=== PATIENT | male | born 1935 | race Caucasian/White ===

== ENCOUNTER 2024-10-17 10:38 | Inpatient (IN) | payer SELFPAY ==
[2024-10-17] VITALS (7 sets, daily range): BP systolic 109–125; BP diastolic 59–67; PULSE 74–79; RESP 18–20; TEMP 97.9–98.4; O2SAT 93–98
[~2024-10-17] VITALS: Ht 188 cm; Wt 83.0 kg
[~2024-10-17 10:38] MED LIST: ALLO-97 PO; APIX5TAB PO; ATOR10TA PO; ATOR10TA69 PO; CARV3 PO; DOCU-385 PO; FINA-27 PO; FLUT1BLS3 IDUCT; FURO20TA5 PO; LEVE250T PO; LEVE250T81 PO; LEVO-72 PO; LEVO500 PO; LISI-894 PO; MULT-1239 PO; PANT-31 PO; POLY17PO47 PEG; SENN-376 PO; TAMS0.4C94 PO; THIA100T80 PO; UBID100C63 PO
[2024-10-17] MEDS ORDERED: ACETAMINOPHEN 325 MG TABLET PO PRN (15:30)
[2024-10-17] MEDS ORDERED: ALBUTEROL SULFATE HFA 90 MCG/PUFF 8 GM INHALER IH PRN (15:30)
[2024-10-17] MEDS: CARVEDILOL 3.125 MG TABLET PO SCH (17:08)
[2024-10-17] MEDS: APIXABAN 2.5 MG TABLET PO SCH (19:53)
[2024-10-17] MEDS: ETHYL ALCOHOL 62% ANTISEPTIC NASAL SANITIZER 0.6 ML AMPUL NASAL SCH (19:53)
[2024-10-17] MEDS: LACTULOSE 20 GM/30 ML SOLUTION UDCUP PO SCH (19:53)
[2024-10-17] MEDS: RIFAXIMIN 550 MG TABLET PO SCH (19:53)
[2024-10-18] VITALS (11 sets, daily range): BP systolic 112–117; BP diastolic 60–69; PULSE 70–81; RESP 18–26; TEMP 97.6–98.3; O2SAT 94–99
[2024-10-18] MEDS: PANTOPRAZOLE SODIUM 40 MG DR TABLET PO SCH (06:41)
[2024-10-18 08:42] LABS: BASOPHILS % (AUTO) 0.2 % (0.0-2.0); EOSINOPHILS % (AUTO) 1.2 % (1.0-6.0); HEMATOCRIT 35.1 % (41-53); HEMOGLOBIN 11.1 g/dL (13.5-17.5); LYMPHOCYTES # (AUTO) 0.7 K/uL (1.0-4.8); LYMPHOCYTES % (AUTO) 10.9 % (22.0-44.0); MEAN CORPUSCULAR HEMOGLOBIN 25.9 pg (26.0-34.0); MEAN CORPUSCULAR HGB CONC 31.6 G/dL (31.0-37.0); MEAN CORPUSCULAR VOLUME 82 fL (80-100); MONOCYTES # (AUTO) 0.6 K/uL (0.1-1.0); MONOCYTES % (AUTO) 8.6 % (2.0-9.0); NEUTROPHILS # (AUTO) 5.1 K/uL (1.8-7.7); NEUTROPHILS % (AUTO) 79.1 % (40.0-70.0); PLATELET COUNT (AUTO) 122 K/uL (150-450); RED BLOOD CELL COUNT(AUTO) 4.29 MIL/uL (4.50-5.90); RED CELL DISTRIBUTION WIDTH 21.3 % (11.5-14.5); WHITE BLOOD COUNT (AUTO) 6.5 K/uL (4.5-11.0)
[2024-10-18 09:00] LABS: ALBUMIN 2.6 g/dL (3.4-5.0); BILIRUBIN,TOTAL 0.7 mg/dL (0.1-1.0); CALCIUM, TOTAL 7.5 mg/dL (8.8-10.5); CREATININE 1.31 mg/dL (0.60-1.30); POTASSIUM 3.4 mmol/L (3.5-5.1); TOTAL PROTEIN, SERUM 5.9 g/dL (6.4-8.2)
[2024-10-18] MEDS: FERROUS SULFATE 325 MG EC TABLET PO SCH (09:13)
[2024-10-18] MEDS: SPIRONOLACTONE 25 MG TABLET PO SCH (09:14)
[2024-10-18] MEDS: DUTASTERIDE 0.5 MG CAPSULE PO SCH (09:15)
[2024-10-18] MEDS: BUMETANIDE 1 MG TABLET PO SCH (09:15)
[2024-10-18] MEDS: UBIDECARENONE 100 MG CAPSULE PO SCH (09:17)
[2024-10-18] MEDS: CLOPIDOGREL BISULFATE 75 MG TABLET PO SCH (09:18)
[2024-10-18] MEDS: DAPAGLIFLOZIN PROPANEDIOL 5 MG TABLET PO SCH (09:18)
[2024-10-18] MEDS: ATORVASTATIN CALCIUM 40 MG TABLET PO SCH (09:18)
[2024-10-18] MEDS: MULTIVITAMINS, THERAPEUTIC TABLET PO SCH (09:18)
[2024-10-18] MEDS: ALFUZOSIN HCL 10 MG ER TABLET PO SCH (09:19)
[2024-10-18] MEDS: ASCORBIC ACID 500 MG TABLET PO SCH (09:19)
[2024-10-18] MEDS: THIAMINE 100 MG TABLET PO SCH (09:19)
[2024-10-18] MEDS: ALLOPURINOL 100 MG TABLET PO SCH (09:20)
[2024-10-18] MEDS: POTASSIUM CHLORIDE 10 MEQ ER TABLET PO ONE (11:49)
[2024-10-18] MEDS: ALBUTEROL SULFATE 2.5 MG/0.5 ML NEB SOLUTION NEB SCH (15:28)
[2024-10-18] MEDS: IPRATROPIUM BROMIDE 0.5 MG/2.5 ML NEB SOLUTION NEB SCH (15:28)
[2024-10-18] MEDS: TIOTROPIUM IH SCH (21:07)
[2024-10-19] VITALS (19 sets, daily range): BP systolic 111–121; BP diastolic 49–72; PULSE 60–85; RESP 16–20; TEMP 97.9–98.2; O2SAT 79–99
[2024-10-19 07:08] LABS: CALCIUM, TOTAL 7.7 mg/dL (8.8-10.5); CREATININE 1.23 mg/dL (0.60-1.30); POTASSIUM 3.6 mmol/L (3.5-5.1)
[2024-10-19] MEDS: OXYGEN THERAPY IH SCH (20:47)
[2024-10-20] VITALS (7 sets, daily range): BP systolic 118–119; BP diastolic 58–70; PULSE 75–88; RESP 16–19; TEMP 97.8; O2SAT 94–98
[2024-10-21 08:00] VITALS: BP 122/64; PULSE 59; RESP 18; TEMP 98.1; O2SAT 92
[2024-10-21 08:03] VITALS: PULSE 64; O2SAT 92
[2024-10-21 15:50] VITALS: PULSE 60; RESP 18; O2SAT 95
[2024-10-21 16:05] VITALS: PULSE 63; RESP 18; O2SAT 98
[2024-10-21 20:00] VITALS: BP 110/57; PULSE 75; RESP 18; TEMP 97.7; O2SAT 97
[2024-10-22] VITALS (9 sets, daily range): BP systolic 118–127; BP diastolic 61–68; PULSE 63–86; RESP 18–22; TEMP 97.7–98.3; O2SAT 92–100
[2024-10-23] VITALS (7 sets, daily range): BP systolic 120–128; BP diastolic 63–65; PULSE 73–79; RESP 18; TEMP 98–98.6; O2SAT 97–99
[2024-10-23] MEDS ORDERED: IPRATROPIUM BROMIDE 0.5 MG/2.5 ML NEB SOLUTION NEB PRN (11:15)
[2024-10-23] MEDS ORDERED: ALBUTEROL SULFATE 2.5 MG/0.5 ML NEB SOLUTION NEB PRN (11:15)
[2024-10-24 08:05] VITALS: BP 121/72; PULSE 69; RESP 18; TEMP 97.9; O2SAT 98
[2024-10-24 10:43] VITALS: O2SAT 98
[2024-10-24 12:26] LABS: BASOPHILS % (AUTO) 1.1 % (0.0-2.0); EOSINOPHILS % (AUTO) 1.3 % (1.0-6.0); HEMATOCRIT 36.6 % (41-53); HEMOGLOBIN 11.5 g/dL (13.5-17.5); LYMPHOCYTES # (AUTO) 0.8 K/uL (1.0-4.8); LYMPHOCYTES % (AUTO) 12.6 % (22.0-44.0); MEAN CORPUSCULAR HEMOGLOBIN 25.9 pg (26.0-34.0); MEAN CORPUSCULAR HGB CONC 31.4 G/dL (31.0-37.0); MEAN CORPUSCULAR VOLUME 83 fL (80-100); MONOCYTES # (AUTO) 0.5 K/uL (0.1-1.0); MONOCYTES % (AUTO) 8.4 % (2.0-9.0); NEUTROPHILS # (AUTO) 4.7 K/uL (1.8-7.7); NEUTROPHILS % (AUTO) 76.6 % (40.0-70.0); PLATELET COUNT (AUTO) 159 K/uL (150-450); RED BLOOD CELL COUNT(AUTO) 4.43 MIL/uL (4.50-5.90); RED CELL DISTRIBUTION WIDTH 22.6 % (11.5-14.5); WHITE BLOOD COUNT (AUTO) 6.1 K/uL (4.5-11.0)
[2024-10-24 12:51] LABS: RBC MORPHOLOGY COMMENT ABNORMAL RBC MORPH
[2024-10-24 12:55] LABS: CALCIUM, TOTAL 8.3 mg/dL (8.8-10.5); CREATININE 1.4 mg/dL (0.60-1.30)
[2024-10-24 17:25] VITALS: BP 136/80; PULSE 75; RESP 18; TEMP 98; O2SAT 98
[2024-10-24 20:02] VITALS: BP 121/66; PULSE 77; RESP 18; TEMP 97.5; O2SAT 97
[2024-10-24 22:31] VITALS: O2SAT 97
[2024-10-25 08:00] VITALS: BP 115/71; PULSE 77; RESP 18; TEMP 97.9; O2SAT 98
[2024-10-25] MEDS ORDERED: FERR325T27 PO (12:34)
[2024-10-25] MEDS ORDERED: PANT-31 PO (12:34)
[2024-10-25] MEDS ORDERED: RIFAX550 PO (12:34)
[2024-10-25] MEDS ORDERED: DAPA5TAB6 PO (12:34)
[2024-10-25] MEDS ORDERED: LACT10SO10 PO (12:34)
[2024-10-25] MEDS ORDERED: APIX2.5T PO (12:34)
[2024-10-25] MEDS ORDERED: TIOT185 IH (12:34)
[2024-10-25] MEDS ORDERED: MULT-14 PO (12:34)
[2024-10-25] MEDS ORDERED: CLOP75TA60 PO (12:34)
[2024-10-25] MEDS ORDERED: ATOR40TA71 PO (12:34)
[2024-10-25] MEDS ORDERED: ALFU10TA47 PO (12:34)
[2024-10-25] MEDS ORDERED: SPIR-37 PO (12:34)
[2024-10-25] MEDS ORDERED: ASCO500 PO (12:34)
[2024-10-25] MEDS ORDERED: DUTA0.5C38 PO (12:34)
[2024-10-25] MEDS ORDERED: BUME1TAB50 PO (12:34)
== END 2024-10-25 13:00 | disposition home or self-care (01) | DRG 189 ==
LOC: 2WR 14:43
PROVIDERS: ADMIT Physical Medicine & Rehabilitation; ATTEND Physical Medicine & Rehabilitation
PROC: 5A09357 Assistance with Respiratory Ventilation, Less than 24 Consecutive Hours, Continuous Positive Airway Pressure (ICD-10-PCS; principal; 2024-10-17)
DX: J96.21 Acute and chronic respiratory failure with hypoxia (principal); G93.41 Metabolic encephalopathy; E46 Unspecified protein-calorie malnutrition; E72.20 Disorder of urea cycle metabolism, unspecified; J44.9 Chronic obstructive pulmonary disease, unspecified; I50.9 Heart failure, unspecified; D69.6 Thrombocytopenia, unspecified; R13.10 Dysphagia, unspecified; R41.89 Other symptoms and signs involving cognitive functions and awareness; R53.81 Other malaise; Z74.09 Other reduced mobility; E78.5 Hyperlipidemia, unspecified; I25.10 Atherosclerotic heart disease of native coronary artery without angina pectoris; I48.91 Unspecified atrial fibrillation; R26.89 Other abnormalities of gait and mobility; N18.9 Chronic kidney disease, unspecified; R53.83 Other fatigue; R60.0 Localized edema; E73.9 Lactose intolerance, unspecified; R33.9 Retention of urine, unspecified; N40.1 Benign prostatic hyperplasia with lower urinary tract symptoms; R25.1 Tremor, unspecified; D64.9 Anemia, unspecified; M47.812 Spondylosis without myelopathy or radiculopathy, cervical region; Z95.0 Presence of cardiac pacemaker; Z68.23 Body mass index [BMI] 23.0-23.9, adult; Z98.61 Coronary angioplasty status; Z99.81 Dependence on supplemental oxygen; Z79.899 Other long term (current) drug therapy; H91.90 Unspecified hearing loss, unspecified ear; R26.9 Unspecified abnormalities of gait and mobility
CPT/HCPCS: 74230; 80048; 80053; 82140; 85025; 87081; 92507; 92523; 92526; 92610; 92611; 93970; 94640; 94660; 97110; 97112; 97116; 97163; 97167; 97530; 97535; 99366